=== PATIENT | male | born 1980 | race African-American/Black ===

== ENCOUNTER 2016-10-07 12:27 | Emergency (ER) | payer SELFPAY ==
--- NOTE | 2016-10-07 12:49 | EDM.PDOC ---
ED HPI GENERAL MEDICAL PROBLEM - General Chief Complaint: Headache Stated Complaint: AMBULANCE Time Seen by Provider: 10/07/16 12:34 - History of Present Illness INITIAL COMMENTS - FREE TEXT/NARRATIVE: HISTORY AND PHYSICAL: History of present illness: Patient 36-year-old black male with a concern of a headache he states he awoke with this headache it was significant is improved dramatically status post Motrin he denies any blurry vision chest pain shortness of breath he denies any other neurological signs or symptoms. He denies recent trauma denies history of chronic Review of systems: As per history of present illness and below otherwise all systems reviewed and negative. Past medical history: As per history of present illness and as reviewed below otherwise noncontributory. Surgical history: As per history of present illness and as reviewed below otherwise noncontributory. Social history: No reported history of drug or alcohol abuse. Family history: As per history of present illness and as reviewed below otherwise noncontributory. Physical exam: HEENT: Atraumatic, normocephalic, pupils reactive, negative for conjunctival pallor or scleral icterus, mucous membranes moist, throat clear, neck supple, nontender, trachea midline. Lungs: Clear to auscultation, breath sounds equal bilaterally, chest nontender. Heart: S1S2, regular, negative for clicks, rubs, or JVD. Abdomen: Soft, nondistended, nontender. Negative for masses or hepatosplenomegaly. Negative for costovertebral tenderness. Pelvis: Stable nontender. Genitourinary: Deferred. Rectal: Deferred. Extremities: Atraumatic, negative for cords or calf pain. Neurovascular unremarkable. Neuro: Awake, alert, oriented. Cranial nerves II through XII unremarkable. Cerebellum unremarkable. Motor and sensory unremarkable throughout. Exam nonfocal. Diagnostics: CT brain Therapeutics: None Impression: #1 cephalgia Definitive disposition and diagnosis as appropriate pending reevaluation and review of above. Frontal VARGAS Pain Score (Numeric/FACES): 5 - Related Data Allergies Allergy/AdvReac Type Severity Reaction Status Date / Time No Known Allergies Allergy Verified 10/07/16 12:33 Home Meds: Home Meds . [No Known Home Meds] 10/07/16 [History] Past Medical History - Past Health History Medical/Surgical History: Denies Medical/Surgical History Hematologic History: Reports: None - Infectious Disease History Infectious Disease History: Reports: None Social & Family History - Family History Family Medical History: Noncontributory - Tobacco Use Smoking Status *Q: Current Every Day Smoker Years of Tobacco use: 5 Packs/Tins Daily: 0.5 - Caffeine Use Caffeine Use: Reports: None - Recreational Drug Use Recreational Drug Use: No ED ROS GENERAL - Review of Systems Review Of Systems: ROS reveals no pertinent complaints other than HPI. ED EXAM, GENERAL - Physical Exam Exam: See Below (See dictation) Course - Vital Signs Last Recorded V/S: Last Vital Signs Temp 36.1 C 10/07/16 12:29 Pulse 78 10/07/16 12:29 Resp 16 10/07/16 12:29 BP 151/98 H 10/07/16 12:29 Pulse Ox 98 10/07/16 12:29 - Orders/Labs/Meds Orders: Active Orders 24 hr Category Date Time Status Head wo Cont [CT] Stat Exams 10/07/16 12:36 Ordered Departure - Departure Time of Disposition: 12:48 Disposition: Home, Self-Care 01 Condition: good Clinical Impression: Cephalgia - Discharge Information Forms: ED Department Discharge Additional Instructions: The following information is given to patients seen in the emergency department who are being discharged to home. This information is to outline your options for follow-up care. We provide all patients seen in our emergency department with a follow-up referral. The need for follow-up, as well as the timing and circumstances, are variable depending upon the specifics of your emergency department visit. If you don't have a primary care physician on staff, we will provide you with a referral. We always advise you to contact your personal physician following an emergency department visit to inform them of the circumstance of the visit and for follow-up with them and/or the need for any referrals to a consulting specialist. The emergency department will also refer you to a specialist when appropriate. This referral assures that you have the opportunity for followup care with a specialist. All of these measure are taken in an effort to provide you with optimal care, which includes your followup. Under all circumstances we always encourage you to contact your private physician who remains a resource for coordinating your care. When calling for followup care, please make the office aware that this follow-up is from your recent emergency room visit. If for any reason you are refused follow-up, please contact the [facility] emergency department at and asked to speak to the emergency department charge nurse. [facility] [place] [id number] Motrin or Tylenol as directed follow up primary medical doctor one to 2 days return as needed as discussed - My Orders Last 24 Hours: My Active Orders 10/07/16 12:36 Head wo Cont [CT] Stat - Assessment/Plan Last 24 Hours: My Active Orders 10/07/16 12:36 Head wo Cont [CT] Stat
--- NOTE | 2016-10-07 13:43 | CT ---
EXAMINATION: Non contrast CT head. Coronal and sagittal reformats. HISTORY: Pain FINDINGS: No evidence of intra or extra axial hemorrhage, mass, midline shift, hydrocephalus or edema. No hypoattenuation changes in the major vascular territories to suggest acute infarct. No abnormal intracranial calcifications are detected. No evidence of substantial vascular calcifica tions. Paranasal sinuses and mastoid air cells are well aerated without substantial findings. Pituitary fossa appears unremarkable. Calvarium is intact. No evidence of skull fracture. 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 IMPRESSION: No acute intracranial findings.
[2016-10-07 14:23] VITALS: BP 140/86
== END 2016-10-07 14:16 | disposition home or self-care (01) ==
LOC: MW.ED 12:27
DX: R51 Headache (principal); F17.210 Nicotine dependence, cigarettes, uncomplicated
CPT/HCPCS: 70450; 70450-26; 99282; 99284-25

== ENCOUNTER 2020-05-20 18:09 | Emergency (ER) | payer SELFPAY ==
[2020-05-20 19:32] VITALS: BP 141/100; PULSE 92
--- NOTE | 2020-05-20 19:34 | CT ---
INDICATION: Prolonged headache COMPARISON: October 07, 2016. TECHNIQUE: CT examination of the head was performed as axial sections without intravenous contrast. Images were obtained from the vertex of the skull through the skull base. Please note that all CT scans at this facility use dose modulation, iterative reconstruction, and/or weight-based dosing when appropriate to reduce radiation dose to as low as reasonably achievable. FINDINGS: The brain shows no sign of mass lesion, mass effect, hemorrhage, or edema. The ventricles and sulci are normal in appearance for the patient`s age. The visualized portions of the orbits are normal in appearance. The osseous structures are normal in their appearance with no sign of abnormality in the skull base or calvarium. IMPRESSION: Normal unenhanced head CT. Please note that all CT scans at this facility use dose modulation, iterative reconstruction, and/or weight-based dosing when appropriate to reduce radiation dose to as low as reasonably achievable. Dictated by Clint Roblero MD @ May 20 2020 7:31PM Signed by Dr. Clint Roblero @ May 20 2020 7:32PM
--- NOTE | 2020-05-20 19:41 | EDM.PDOC ---
ED HPI GENERAL MEDICAL PROBLEM - General Chief Complaint: Cardiovascular Problem Stated Complaint: BLOOD PRESSURE CHECK, CONSTANT HEADACHE Time Seen by Provider: 05/20/20 18:40 Source of Information: Reports: Patient History Limitations: Reports: No Limitations - History of Present Illness INITIAL COMMENTS - FREE TEXT/NARRATIVE: HISTORY AND PHYSICAL: History of present illness: Patient is a 39-year-old male who presents to the ED today with concern of headache that has been ongoing for the past 1 to 2 weeks. Patient states the headache comes and goes and states that if he does take some [id number]-[id number] naproxen or Aleve his headache does go away. Patient states that he was concerned he was ignoring a bigger health problem as he continues to have the headache. Patient denies any head trauma or injury. Patient states the headache is low-grade and dull. Denies any other symptoms or concerns. Patient denies fever, chills, chest pain, shortness of breath, or cough. Denies headache, neck stiff ness, change in vision, syncope, or near syncope. Denies nausea, vomiting, abdominal pain, diarrhea, constipation, or dysuria. Has not noted any blood in urine or stool. Patient has been eating and drinking appropriately. Review of systems: As per history of present illness and below otherwise all systems reviewed and negative. Past medical history: As per history of present illness and as reviewed below otherwise noncontributory. Surgical history: As per history of present illness and as reviewed below otherwise noncontributory. Social history: See social history for further information Family history: As per history of present illness and as reviewed below otherwise noncontributory. Physical exam: General: Patient is alert, oriented, and in no acute distress. Patient sitting comfortably on exam table. Vital stable and reviewed by me. HEENT: Atraumatic, normocephalic, pupils equal and reactive bilaterally, negative for conjunctival pallor or scleral icterus, mucous membranes moist, TMs normal bilaterally, throat clear, neck supple, nontender, trachea midline. No drooling or trismus noted. No meningeal signs. No hot potato voice noted. Lungs: Clear to auscultation, breath sounds equal bilaterally, chest nontender. Heart: S1S2, regular rate and rhythm without overt murmur Abdomen: Soft, nondistended, nontender. Negative for masses or he patosplenomegaly. Negative for costovertebral tenderness. Pelvis: Stable nontender. Genitourinary: Deferred. Rectal: Deferred. Skin: Intact, warm, dry. No lesions or rashes noted. Extremities: Atraumatic, negative for cords or calf pain. Neurovascular unremarkable. Neuro: Awake, alert, oriented. Cranial nerves II through XII unremarkable. Cerebellum unremarkable. Motor and sensory unremarkable throughout. Exam nonfocal. Notes: BP: 144/92 on my exam. Upon reexamination of patient today in the ED, he states that his headache is completely resolved and he is not having a headache any longer. Patient denies any new or associated symptoms while being in the emergency room. Signs and symptoms that would prompt return to the ED thoroughly discussed with patient. Discussed importance for follow-up with a primary care provider. Voices understanding and is agreeable to plan of care. Denies any further questions or concerns at this time. Diagnostics: Head CT Therapeutics: None (patient was offered therapeutics for his headache today, but he declines at this time. All risks versus benefits discussed with patient expresses understanding) Prescription: None Impression: Headache, resolved Plan: 1. You can alternate ibuprofen and Tylenol as directed for pain discomfort. Encourage small but frequent simple fluid to prevent dehydration. 2. Follow-up with your primary care provider as discussed. Return to the ED as needed and as discussed. Definitive disposition and diagnosis as appropriate pending reevaluation and review of above. Headache Pain Score (Numeric/FACES): 5 - Related Data Allergies Allergy/AdvReac Type Severity Reaction Status Date / Time pollen extracts Allergy Cannot Verified 05/20/20 18:36 Remember Home Meds: Home Meds . [No Known Home Meds] 10/07/16 [History] Past Medical History - Past Health History Medical/Surgical History: Denies Medical/Surgical History Hematologic History: Reports: None - Infectious Disease History Infectious Disease History: Reports: None Social & Family History - Family History Family Medical History: No Pertinent Family History - Tobacco Use Tobacco Use Status *Q: Never Tobacco User - Caffeine Use Caffeine Use: Reports: Coffee - Recreational Drug Use Recreational Drug Use: No ED ROS GENERAL - Review of Systems Review Of Systems: Comprehensive ROS is negative, except as noted in HPI. ED EXAM, GENERAL - Physical Exam Exam: See Below (See dictation) Course - Vital Signs Last Recorded V/S: Last Vital Signs Temp 98.6 F 05/20/20 18:37 Pulse 92 05/20/20 19:30 Resp 16 05/20/20 19:30 BP 141/100 H 05/20/20 19:30 Pulse Ox 97 05/20/20 19:30 Departure - Departure Time of Disposition: 19:39 Disposition: Home, Self-Care 01 Clinical Impression: Headache Qualifiers: Headache type: unspecified Headache chronicity pattern: unspecified pattern Intractability: not intractable Qualified Code(s): R51.9 - Headache, unspecified Instructions: General Headache Without Cause, [id number] Referrals: PCP,None [Primary Care Provider] - Forms: ED Department Discharge Additional Instructions: The following information is given to patients seen in the emergency department who are being discharged to home. This information is to outline your options for follow-up care. We provide all patients seen in our emergency department with a follow-up referral. The need for follow-up, as well as the timing and circumstances, are variable depending upon the specifics of your emergency department visit. If you don't have a primary care physician on staff, we will provide you with a referral. We always advise you to contact your personal physician following an emergency department visit to inform them of the circumstance of the visit and for follow-up with them and/or the need for any referrals to a consulting specialist. The emergency department will also refer you to a specialist when appropriate. This referral assures that you have the opportunity for follow-up care with a specialist. All of these measure are taken in an effort to provide you with optimal care, which includes your follow-up. Under all circumstances we always encourage you to contact your private physician who remains a resource for coordinating your care. When calling for fo llow-up care, please make the office aware that this follow-up is from your recent emergency room visit. If for any reason you are refused follow-up, please contact the [facility] Emergency Department at and asked to speak to the emergency department charge nurse. [facility] [address] [place] [address] [id number] [address] [address] 1. You can alternate ibuprofen and Tylenol as directed for pain discomfort. Encourage small but frequent simple fluid to prevent dehydration. 2. Follow-up with your primary care provider as discussed. Return to the ED as needed and as discussed. Sepsis Event Note (ED) - Evaluation Sepsis Screening Result: No Definite Risk
--- NOTE | 2020-05-21 00:54 | PCM.SN.2 ---
- Free Text/Narrative Note: EKG: As interpreted by ER physician: [place]: Nonspecific ST-T wave abnormalities Normal axis No evidence of ST elevation PR Normal sinus rhythm heart rate of 84
== END 2020-05-20 19:49 | disposition home or self-care (01) ==
LOC: MW.ED 18:09
DX: R51.9 Headache, unspecified (principal); Z91.048 Other nonmedicinal substance allergy status
CPT/HCPCS: 70450; 70450-26; 93005; 99282; 99284-25

== ENCOUNTER 2022-12-23 22:21 | Emergency (ER) | payer SELFPAY ==
[2022-12-23] MEDS ORDERED: Ketorolac 30 MG/ML SDV IVPUSH ONE (22:50)
[2022-12-23] MEDS ORDERED: Sodium Chloride 0.9% 1,000 ML IV ONE (22:50)
[2022-12-23] MEDS ORDERED: Metoclopramide 10 MG/2 ML SDV IVPUSH ONE (22:50)
[2022-12-23 23:55] LABS: BASOPHILS PERCENT AUTO 0.4 % (0.0-1.5); EOSINOPHILS PERCENT AUTO 0.2 % (0.0-7.0); HEMATOCRIT 44.5 % (38.0-50.0); HEMOGLOBIN 14.4 g/dL (13.0-17.0); LYMPHOCYTES ABSOLUTE AUTO 0.9 K/uL (0.6-2.4); LYMPHOCYTES PERCENT AUTO 19.4 % (16.0-40.0); MEAN CORPUSCULAR HEMOGLOBIN 28.7 pg (27.0-32.0); MEAN CORPUSCULAR HGB CONC 32.4 g/dL (31.0-37.0); MEAN CORPUSCULAR VOLUME 88.8 fL (80.0-98.0); MONOCYTES ABSOLUTE AUTO 0.8 K/uL (0.0-0.8); MONOCYTES PERCENT AUTO 16.2 % (0.0-15.0); NEUTROPHILS PERCENT AUTO 63.8 % (48.0-80.0); NRBC ABSOLUTE 0 K/uL; PLATELET COUNT,PLT 244 K/uL (150-400); RED BLOOD CELL COUNT 5.01 M/uL (4.50-5.90); WHITE BLOOD CELL COUNT,WBC 4.68 K/uL (4.0-11.0)
[2022-12-24 00:20] LABS: CARBON DIOXIDE,CO2 27.2 mmol/L (21.0-32.0); CREATININE 1.3 mg/dL (0.8-1.3); EST CRCL DRUG DOSING (CG) 78.04 mL/min; POTASSIUM,K 3.5 mmol/L (3.5-5.1)
[2022-12-24] MEDS ORDERED: Iopamidol 755 MG/ML 500 ML Multipack Bottle IVPUSH ONE (00:34)
[2022-12-24 01:50] VITALS: BP 138/92; PULSE 94
== END 2022-12-24 01:50 | disposition home or self-care (01) ==
LOC: MW.ED 22:21
DX: M54.6 Pain in thoracic spine (principal); Z91.048 Other nonmedicinal substance allergy status
CPT/HCPCS: 36415; 71045; 71275; 80048; 84484; 85025; 93005; 96361; 96374; 96375; 99285; J1885; J2765; J7030; Q9967

== ENCOUNTER 2023-01-01 11:56 | Emergency (ER) | payer SELFPAY ==
[2023-01-01 12:16] VITALS: BP 146/88; PULSE 92
== END 2023-01-01 13:37 | disposition home or self-care (01) ==
LOC: MW.ED 11:56
DX: J00 Acute nasopharyngitis [common cold] (principal); Z91.048 Other nonmedicinal substance allergy status; Z20.822 Contact with and (suspected) exposure to COVID-19
CPT/HCPCS: 71046; 71046-26; 99283; U0002

== ENCOUNTER 2024-08-31 13:34 | Emergency (ER) | payer SELFPAY ==
[2024-08-31 14:57] VITALS: BP 157/89; PULSE 98
== END 2024-08-31 15:06 | disposition home or self-care (01) ==
LOC: MW.ED 13:34
DX: J06.9 Acute upper respiratory infection, unspecified (principal); B97.89 Other viral agents as the cause of diseases classified elsewhere; Z91.048 Other nonmedicinal substance allergy status; Z79.899 Other long term (current) drug therapy
CPT/HCPCS: 71046; 71046-26; 87428-QW; 99283; 99284

== ENCOUNTER 2024-10-15 16:32 | Emergency (ER) | payer SELFPAY ==
[2024-10-15] MEDS: Tetracaine HCl/PF 0.5% 4 ML Bottle EYELF ONE (18:09)
[2024-10-15] MEDS: Tetracaine HCl/PF 0.5% 4 ML Bottle ONE (18:10)
[2024-10-15] MEDS ORDERED: Moxifloxacin 0.5% Ophth Soln 3 ML Bottle EYELF ONE (18:22)
[2024-10-15 19:03] VITALS: BP 168/82; PULSE 78
== END 2024-10-15 19:00 | disposition home or self-care (01) ==
LOC: MW.ED 16:32
DX: S05.02XA Injury of conjunctiva and corneal abrasion without foreign body, left eye, initial encounter (principal); Z75.3 Unavailability and inaccessibility of health-care facilities; Z91.018 Allergy to other foods; Z79.899 Other long term (current) drug therapy; X58.XXXA Exposure to other specified factors, initial encounter; Y93.89 Activity, other specified
CPT/HCPCS: 99283; J3490